=== PATIENT | female | born 1940 | race Caucasian/White ===

== ENCOUNTER → 2018-01-15 07:22 | Outpatient (CLI) | payer MEDICARE, SELFPAY ==
[2018-01-15 10:36] LABS: Absolute Lymphocyte Count 2.32 X10^3/ul (0.83-4.51); Absolute Neutrophil Count 3.1 X10^3/uL (2.0-7.7); Basophil# 0.04 X10^3/uL; Basophil% 0.6 % (0-1); Eosinophil# 0.27 X10^3/uL; Eosinophils% 4.1 % (0-5); Hematocrit 39.9 % (37-47); Hemoglobin 12.9 g/dl (12.0-15.0); Lymphocyte # 2.32 X10^3/ul (4.0); Lymphocyte % 35.2 % (19-41); Mean Corp Hgb Conc 32.3 g/gl (32-36); Mean Corpuscular Volume 89.7 fL (81-99); Mean Platelet Vol. 10.7 fl (6.2-12.0); Monocyte% 13.6 % (0-10); Neutrophil # 3.06 X10^3/uL (2.7-7.7); Neutrophil % 46.3 % (47-70); Platelet Count 234 K/mm3 (150-450); RBC Distribution Width CV 13.5 % (11.6-14.6); Red Blood Count 4.45 M/mm3 (4.2-5.4); White Blood Count 6.6 K/mm3 (4.4-11.0)
[2018-01-15 10:42] LABS: Hemoglobin A1c 6.4 % (4.2-6.3)
[2018-01-15 10:52] LABS: POSITIVE COUNT NO; POSITIVE DIFFERENTIAL NO; POSITIVE MORPHOLOGY NO
[2018-01-15 11:29] LABS: ALB/GLOB Ratio 0.9 RATIO (0.9-2.4); AST(SGOT) 15 U/L (15-37); Alanine Aminotransfer ALT/SGPT 21 U/L (13-56); Albumin, Serum 3.3 g/dL (3.2-5.0); Alkaline Phosphatase 96 U/L (45-117); Anion Gap 10 (5-15); BUN 12 mg/dL (7-18); BUN/Creat Ratio 16.6 RATIO (10-20); Calcium,Total 8.2 mg/dL (8.5-10.1); Chloride 108 mmol/L (98-107); Cholesterol 198 mg/dL (200); Creatinine, Serum 0.72 mg/dL (0.55-1.02); EST Glomerular Filtration Rate 83 mL/min (>60); Est Glom Filt Rate - Afr Amer 100 mL/min (>60); Globulin 3.6 g/dL (2.2-4.2); Glucose 87 mg/dL (74-106); High Density Lipoprotein 45 mg/dL; Potassium 3.7 mmol/L (3.5-5.1); Protein, Total 6.9 g/dL (6.4-8.2); Sodium Level 142 mmol/L (136-145); Thyroid Stim Hormone (TSH) 1.71 uIU/mL (0.358-3.74); Triglycerides 176 mg/dL; Very Low Density Lipoprotein 35 mg/dL (5-40)
== END ==
PROVIDERS: Family Provider Family Medicine; PCP Family Medicine; Visit Provider Family Medicine
DX: E11.9 Type 2 diabetes mellitus without complications (principal); I10 Essential (primary) hypertension; E03.9 Hypothyroidism, unspecified; E78.5 Hyperlipidemia, unspecified
CPT/HCPCS: 36415; 80053; 80061; 83036; 84443; 85025

== ENCOUNTER → 2018-05-17 09:56 | Outpatient (CLI) | payer MEDICARE, SELFPAY ==
[2018-05-17 12:44] LABS: ALB/GLOB Ratio 0.9 RATIO (0.9-2.4); AST(SGOT) 20 U/L (15-37); Alanine Aminotransfer ALT/SGPT 24 U/L (13-56); Albumin, Serum 3.5 g/dL (3.2-5.0); Alkaline Phosphatase 97 U/L (45-117); Anion Gap 7 (5-15); BUN 11 mg/dL (7-18); BUN/Creat Ratio 12.2 RATIO (10-20); Calcium,Total 8.5 mg/dL (8.5-10.1); Chloride 106 mmol/L (98-107); EST Glomerular Filtration Rate 64 mL/min (>60); Est Glom Filt Rate - Afr Amer 78 mL/min (>60); Globulin 3.7 g/dL (2.2-4.2); Glucose 135 mg/dL (74-106); Potassium 3.9 mmol/L (3.5-5.1); Protein, Total 7.2 g/dL (6.4-8.2); Sodium Level 143 mmol/L (136-145)
[2018-05-17 12:52] LABS: Vitamin B12 775 pg/mL (211-911)
== END ==
PROVIDERS: Family Provider Family Medicine; PCP Family Medicine; Visit Provider Family Medicine
DX: E53.8 Deficiency of other specified B group vitamins (principal); Z51.81 Encounter for therapeutic drug level monitoring
CPT/HCPCS: 36415; 80053; 82607

== ENCOUNTER → 2019-01-06 07:56 | Outpatient (CLI) | payer MEDICARE, SELFPAY ==
[2019-01-06 10:08] LABS: Absolute Neutrophil Count 2.5 X10^3/uL (2.0-7.7); Basophil# 0.08 X10^3/uL; Basophil% 1.3 % (0-1); Eosinophil# 0.26 X10^3/uL; Eosinophils% 4.3 % (0-5); Hematocrit 39.9 % (37-47); Hemoglobin 12.7 g/dl (12.0-15.0); Lymphocyte % 38.4 % (19-41); Mean Corp Hgb Conc 31.8 g/gl (32-36); Mean Corpuscular Hgb 28.5 pg (27.0-32.0); Mean Corpuscular Volume 89.7 fL (81-99); Mean Platelet Vol. 10.5 fl (6.2-12.0); Monocyte# 0.84 X10^3/uL; Neutrophil # 2.51 X10^3/uL (2.7-7.7); Platelet Count 218 K/mm3 (150-450); RBC Distribution Width CV 13.1 % (11.6-14.6); RBC Distribution Width SD 43.1 fl (35.1-43.9); Red Blood Count 4.45 M/mm3 (4.2-5.4)
[2019-01-06 10:10] LABS: POSITIVE COUNT NO; POSITIVE DIFFERENTIAL NO; POSITIVE MORPHOLOGY NO
[2019-01-06 10:53] LABS: Microalbumin,Random Urine 6.4 mg/L (NO RANGE EST.); Microalbumin:Creatinine Ratio 8.4 mg/g CRE (<30 mg/g CRE)
[2019-01-06 10:54] LABS: Hemoglobin A1c 6.4 % (4.2-6.3)
[2019-01-06 11:02] LABS: ALB/GLOB Ratio 0.9 RATIO (0.9-2.4); AST(SGOT) 17 U/L (15-37); Alanine Aminotransfer ALT/SGPT 22 U/L (13-56); Albumin, Serum 3.3 g/dL (3.2-5.0); Alkaline Phosphatase 108 U/L (45-117); Anion Gap 10 (5-15); BUN 16 mg/dL (7-18); BUN/Creat Ratio 17.4 RATIO (10-20); Calcium,Total 8.3 mg/dL (8.5-10.1); Chloride 108 mmol/L (98-107); Cholesterol 205 mg/dL (200); Creatinine, Serum 0.92 mg/dL (0.55-1.02); EST Glomerular Filtration Rate 63 mL/min (>60); Est Glom Filt Rate - Afr Amer 76 mL/min (>60); Globulin 3.5 g/dL (2.2-4.2); Glucose 99 mg/dL (74-106); High Density Lipoprotein 46 mg/dL; Potassium 4.2 mmol/L (3.5-5.1); Protein, Total 6.8 g/dL (6.4-8.2); Sodium Level 142 mmol/L (136-145); T4 Free Direct 1.26 ng/dL (0.76-1.46); Thyroid Stim Hormone (TSH) 1.15 uIU/mL (0.358-3.74); Triglycerides 113 mg/dL; Very Low Density Lipoprotein 23 mg/dL (5-40)
[2019-01-08 15:04] LABS: Vitamin B12 500 pg/mL (211-911)
== END ==
PROVIDERS: Family Provider Family Medicine; PCP Family Medicine; Referring Provider Family Medicine; Visit Provider Family Medicine
DX: E11.9 Type 2 diabetes mellitus without complications (principal); I10 Essential (primary) hypertension; E03.9 Hypothyroidism, unspecified; R53.83 Other fatigue; D64.9 Anemia, unspecified
CPT/HCPCS: 36415; 80053; 80061; 82043; 82570; 82607; 83036; 84439; 84443; 85025

== ENCOUNTER → 2019-07-28 07:04 | Outpatient (CLI) | payer MEDICARE, SELFPAY ==
[2019-07-28 10:23] LABS: Cholesterol 206 mg/dL (200); High Density Lipoprotein 51 mg/dL; Triglycerides 105 mg/dL; Very Low Density Lipoprotein 21 mg/dL (5-40)
== END ==
PROVIDERS: Family Provider Family Medicine; PCP Family Medicine; Referring Provider Family Medicine; Visit Provider Family Medicine
DX: E78.5 Hyperlipidemia, unspecified (principal)
CPT/HCPCS: 36415; 80061

== ENCOUNTER → 2019-12-23 09:07 | Outpatient (CLI) | payer MEDICARE, SELFPAY ==
[2019-12-23 10:00] LABS: Absolute Lymphocyte Count 2.22 X10^3/uL (0.83-4.51); Absolute Neutrophil Count 3.7 X10^3/uL (2.0-7.7); Basophil# 0.07 X10^3/uL; Eosinophil# 0.18 X10^3/uL; Eosinophils% 2.6 % (0-5); Hematocrit 39.5 % (37-47); Hemoglobin 12.9 g/dL (12.0-15.0); Lymphocyte # 2.22 X10^3/ul (4.0); Lymphocyte % 32.2 % (19-41); Mean Corp Hgb Conc 32.7 g/dL (32-36); Mean Corpuscular Volume 88.8 fL (81-99); Mean Platelet Vol. 10.2 fl (6.2-12.0); Monocyte# 0.75 X10^3/uL; Monocyte% 10.9 % (0-10); NRBC Flagged by Analyzer 0 % (0-5); Neutrophil # 3.67 X10^3/uL (2.7-7.7); Neutrophil % 53.2 % (47-70); Platelet Count 226 K/mm3 (150-450); RBC Distribution Width SD 42.2 fl (35.1-43.9); Red Blood Count 4.45 M/mm3 (4.2-5.4); White Blood Count 6.9 K/mm3 (4.4-11.0)
[2019-12-23 10:19] LABS: Hemoglobin A1c 6.9 % (4.2-6.3)
[2019-12-23 10:21] LABS: Microalbumin,Random Urine 24.1 mg/L (NO RANGE EST.); Microalbumin:Creatinine Ratio 14.9 mg/g CRE (<30 mg/g CRE)
[2019-12-23 10:26] LABS: ALB/GLOB Ratio 0.9 RATIO (0.9-2.4); AST(SGOT) 14 U/L (15-37); Alanine Aminotransfer ALT/SGPT 20 U/L (13-56); Albumin, Serum 3.3 g/dL (3.2-5.0); Alkaline Phosphatase 100 U/L (45-117); Anion Gap 6 (5-15); BUN 14 mg/dL (7-18); BUN/Creat Ratio 15.5 RATIO (10-20); Calcium,Total 8.8 mg/dL (8.5-10.1); Chloride 109 mmol/L (98-107); Cholesterol 208 mg/dL (200); EST Glomerular Filtration Rate 64 mL/min (>60); Est Glom Filt Rate - Afr Amer 77 mL/min (>60); Free T3 2.5 pg/mL (2.18-3.98); Globulin 3.7 g/dL (2.2-4.2); Glucose 138 mg/dL (74-106); High Density Lipoprotein 46 mg/dL; Potassium 4.2 mmol/L (3.5-5.1); Sodium Level 140 mmol/L (136-145); Thyroid Stim Hormone (TSH) 1.39 uIU/mL (0.358-3.74); Triglycerides 144 mg/dL; Very Low Density Lipoprotein 29 mg/dL (5-40)
[2019-12-23 10:39] LABS: Vitamin B12 919 pg/mL (211-911)
== END ==
PROVIDERS: PCP Family Medicine; Referring Provider Family Medicine; Visit Provider Family Medicine
DX: E11.9 Type 2 diabetes mellitus without complications (principal); E03.9 Hypothyroidism, unspecified; E53.8 Deficiency of other specified B group vitamins; E78.5 Hyperlipidemia, unspecified; Z51.81 Encounter for therapeutic drug level monitoring
CPT/HCPCS: 36415; 80053; 80061; 82043; 82570; 82607; 83036; 84439; 84443; 84481; 85025

== ENCOUNTER → 2020-01-15 06:43 | Outpatient (CLI) | payer MEDICARE, SELFPAY ==
--- NOTE | 2020-01-15 08:19 | CDU_ITS ---
Reason For Study: stroke Rt. Velocities/BP Lt. Velocities/BP Prox CCA 76.8/15.4 cm/sec. Prox CCA 108.3/20.6 cm/sec. Mid CCA 124.7/20.6 cm/sec. Mid CCA 122.9/26.1 cm/sec. Dist CCA 102.8/18.8 cm/sec. Dist CCA 108.4/20.0 cm/sec. Prox ICA 99.8/15.1 cm/sec. Prox ICA 119.5/21.2 cm/sec. Mid ICA 83.9/20.0 cm/sec. Mid ICA 91.2/21.2 cm/sec. Dist ICA 72.8/20.0 cm/sec. Dist ICA 76.5/22.5 cm/sec. Rt. ICA/CCA = .8. Lt. ICA/CCA = .97. Prox ECA 106.5/15.2 cm/sec. Prox ECA 106.0/16.3 cm/sec. Rt. Vert. 49.5/13.9 cm/sec. Lt. Vert. 38.8/12.4 cm/sec. Right Extracranial There is homogeneous, smooth atherosclerotic plaque noted in the right common carotid artery. There is intimal thickening but no significant atherosclerotic plaque noted in the right internal carotid artery. There is intimal thickening but no significant atherosclerotic plaque noted in the right external carotid artery. Antegrade flow is noted in the right vertebral artery. Left Extracranial There is heterogeneous, irregular atherosclerotic plaque noted in the left common carotid artery. There is intimal thickening but no significant atherosclerotic plaque noted in the left internal carotid artery. There is intimal thickening but no significant atherosclerotic plaque noted in the left external carotid artery. Antegrade flow is noted in the left vertebral artery. Procedure Carotid Duplex 23027. The exam was diagnostic. Exam performed in department. Interpretation Summary No significant atherosclerotic plaque or stenosis noted in the internal carotid arteries bilaterally. Flow within the vertebral arteries is antegrade bilaterally. Ordering Physician: Ivett Trujillo Performed By: Jordon Roque RVT
--- NOTE | 2020-01-15 14:58 | STRESSREP_ITS ---
Stress Test Report Date: 01/15/2020 Procedure: Pharmacologic stress nuclear imaging study Indications: Fatigue, stroke Consent: Per the patient Procedure: The patient underwent pharmacologic (Regadenoson) evaluation with a peak heart rate of 99 beats per minute (71 %predicted maximal heart rate) and a peak blood pressure of 130/60 mmHg. The baseline ECG demonstrated normal sinus rhythm. EKG during lexiscan infusion revealed no significant ischemic changes. EKG post infusion revealed no significant ischemic changes [There were no cardiac dysrhythmias pretest, during pharmacologic infusion, or recovery]. [There was no complaint of chest discomfort during pharmacologic infusion or recovery]. The examination was discontinued secondary to completion of protocol. Impression: 1. Lexiscan stress test test is negative for Lexiscan infusion induced EKG changes of ischemia. 2. Lexiscan stress test test is negative for Lexiscan infusion induced chest pain. 3. Results of the nuclear portion of the test is as below Myocardial perfusion imaging study: Technique: The patient was injected with 11.3 millicuries of technetium 99m Cardiolite and subsequently rest SPECT Cardiolite nuclear imaging was obtained in the horizontal long, vertical long, and short axis views. The patient underwent pharmacologic (Regadenoson) evaluation. Please see above for details. The patient was injected with 36 millicuries of technetium 99m Cardiolite and subsequently stress SPECT Cardiolite nuclear imaging was obtained in the horizontal long, vertical long, and short axis views. A gated Cardiolite study at peak stress was obtained. Interpretation: Rest and stress SPECT Cardiolite nuclear imaging status post realignment, normalization, and attenuation correction demonstrate normal myocardial radioisotope uptake. Gated images reveal no significant regional wall motion abnormalities. The reported LVEF is greater than 70 %. Impression: 1. There is no evidence of significant ischemia or infarction. 2. Estimated ejection fraction is greater than 70%. This note was generated with [employer] software. It may contain incorrect words, spelling, and punctuation that were not noted in checking the note before signing.
== END ==
PROVIDERS: PCP Family Medicine; Referring Provider Family Medicine; Visit Provider Family Medicine
DX: R06.09 Other forms of dyspnea (principal); R53.83 Other fatigue; E11.9 Type 2 diabetes mellitus without complications; Z86.73 Personal history of transient ischemic attack (TIA), and cerebral infarction without residual deficits
CPT/HCPCS: 78452; 93017; 93880; A9500; A4216; J2785

== ENCOUNTER → 2020-07-01 11:29 | Outpatient (CLI) | payer MEDICARE, SELFPAY ==
[2020-07-01 16:12] LABS: Vitamin B12 399 pg/mL (211-911); Vitamin D,25 Hydroxy 40.3 ng/mL
== END ==
PROVIDERS: PCP Family Medicine; Visit Provider Family Medicine
DX: E53.8 Deficiency of other specified B group vitamins (principal); E55.9 Vitamin D deficiency, unspecified
CPT/HCPCS: 36415; 82306; 82607

== ENCOUNTER → 2021-01-27 15:19 | Outpatient (CLI) | payer MEDICARE, SELFPAY ==
--- NOTE | 2021-01-27 15:22 | BI_ITS ---
MAMMOGRAPHY - BILATERAL SCREENING REASON FOR EXAM: Female, 80 years old. Routine annual screening examination. PERTINENT HISTORY: Non-contributory. TECHNIQUE: Digital bilateral breast amrit (3D mammographic acquisition) in the CC and MLO projections. 2-D mediolateral oblique (MLO) and craniocaudad (CC) views of both breasts were obtained. CAD: Full Field Digital Mammography with Computer Added Detection was performed. COMPARISON: Comparison is made with prior study dated 08/21/2017 and 01/12/2016. FINDINGS: Breast Composition: The breasts are almost entirely fatty. There are no dominant masses or suspicious calcifications. No other significant abnormalities are identified. There has been no significant change since the prior study. BI/SCRN MAMM (CAD)W/AMRIT BILAT IMPRESSION: Stable bilateral screening mammogram. Yearly follow-up mammogram recommended. (A) ASSESSMENT CATEGORY: BIRADS Category 1: Negative. A letter regarding these results will be sent to the patient by the facility within 30 days. Approximately 10% of breast cancers are not detected by mammography. A normal mammogram should not delay biopsy of a clinically suspicious abnormality. [id number] Electronically Signed: Tim Rodriguez MD at 8:33 EDT , Service support ,
--- NOTE | 2021-01-27 15:28 | BD_ITS ---
STUDY: DUAL ENERGY X-RAY ABSORPTIOMETRY / DXA REASON FOR EXAM: Female, 80 years old. 733.00OsteoporosisBONE DENSITY REASON FOR EXAM TECHNIQUE: Bone Mineral Density (BMD) measurements of lumbar spine and bilateral hips were obtained. COMPARISON: Comparison is made with prior study dated 12/31/2012. FINDINGS: Lumbar Spine (L1-L4): g/cm2 (1.122) / T-score (-0.5) / Z-score (1.4) Findings are suggestive of normal bone density with a low fracture risk. Left Femur Total: g/cm2 (0.930) / T-score (-0.6) / Z-score (1.5) Left Femoral Neck: g/cm2 (0.866) / T-score (-1.2) / Z-score (1.0) Right Femur Total: g/cm2 (0.854) / T-score (-1.2) / Z-score (0.9) Right Femoral Neck: g/cm2 (0.806) / T-score (-1.7) / Z-score (0.6) The T-Scores on the most recent prior examination were: Lumbar Spine (L1-L4): There has been improvement of bone density since the previous examination. Left Femur Total: which represents a worsening of 6.1%. Right Femur Total: which represents a worsening of 7.8%. BD/Dexa Bone Density Study IMPRESSION: The patient is considered osteopenic as outlined below according to World [place] [employer] Organization (WHO) criteria with a moderate fracture risk. There has been worsening of bone density since the previous examination. Reference Information: The T-score is the number of standard deviations above or below the standard which is normal for young adults at their peak bone mineral density. The World Health Organization (WHO) interprets the T-scores as follows: Above -1 Normal bone density Between -1 and -2.5 Osteopenia Equal to / or below -2.5 Osteoporosis As a practical clinical guideline, osteopenia may be graded as follows: Mild -1 through -1.5 Moderate -1.6 through -2.0 Severe -2.1 through -2.4 The Z-score is the number of standard deviations above or below age-matched controls. A Z-score of less than -1.5 would be considered abnormal. References: 1. NIH Osteoporosis and Related Bone Diseases www osteo.org 2. International Society for Clinical Densitometry www iscd.org 3. National Osteoporosis Foundation www nof.org Electronically Signed: Tim Rodriguez MD at 13:12 EDT , Service support ,
== END ==
LOC: OPBD 15:20
PROVIDERS: PCP Family Medicine; Referring Provider Family Medicine; Visit Provider Family Medicine
DX: Z12.31 Encounter for screening mammogram for malignant neoplasm of breast (principal); M81.0 Age-related osteoporosis without current pathological fracture
CPT/HCPCS: 77063; 77067; 77080

== ENCOUNTER → 2021-04-11 07:51 | Outpatient (CLI) | payer MEDICARE, SELFPAY ==
[2021-04-11 10:16] LABS: Absolute Lymphocyte Count 2.57 X10^3/uL (0.83-4.51); Absolute Neutrophil Count 2.8 X10^3/uL (2.0-7.7); Basophil# 0.09 X10^3/uL; Basophil% 1.4 % (0-1); Eosinophil# 0.28 X10^3/uL; Eosinophils% 4.3 % (0-5); Hematocrit 37.7 % (37-47); Hemoglobin 12.2 g/dL (12.0-15.0); Lymphocyte # 2.57 X10^3/ul (0.83-4.51); Lymphocyte % 39.2 % (19-41); Mean Corp Hgb Conc 32.4 g/dL (32-36); Mean Corpuscular Hgb 28.7 pg (27.0-32.0); Mean Corpuscular Volume 88.7 fL (81-99); Mean Platelet Vol. 10.8 fl (6.2-12.0); Monocyte% 12.2 % (0-10); NRBC Flagged by Analyzer 0 % (0-5); Neutrophil # 2.81 X10^3/uL (2.7-7.7); Neutrophil % 42.7 % (47-70); Platelet Count 221 K/mm3 (150-450); RBC Distribution Width CV 13.2 % (11.6-14.6); RBC Distribution Width SD 43.2 fl (35.1-43.9); Red Blood Count 4.25 M/mm3 (4.2-5.4); White Blood Count 6.6 K/mm3 (4.4-11.0)
[2021-04-11 10:40] LABS: ALB/GLOB Ratio 0.9 RATIO (0.9-2.4); AST(SGOT) 14 U/L (15-37); Alanine Aminotransfer ALT/SGPT 17 U/L (13-56); Albumin, Serum 3.2 g/dL (3.2-5.0); Alkaline Phosphatase 112 U/L (45-117); Anion Gap 7 (5-15); BUN 18 mg/dL (7-18); BUN/Creat Ratio 20.3 RATIO (10-20); Calcium,Total 8.6 mg/dL (8.5-10.1); Chloride 107 mmol/L (98-107); Cholesterol 188 mg/dL (200); Creatinine, Serum 0.88 mg/dL (0.55-1.02); EST Glomerular Filtration Rate 65 mL/min (>60); Est Glom Filt Rate - Afr Amer 79 mL/min (>60); Free T3 2.4 pg/mL (2.18-3.98); Globulin 3.5 g/dL (2.2-4.2); Glucose 150 mg/dL (74-106); High Density Lipoprotein 41 mg/dL; Potassium 4.1 mmol/L (3.5-5.1); Protein, Total 6.7 g/dL (6.4-8.2); Sodium Level 142 mmol/L (136-145); T4 Free Direct 1.26 ng/dL (0.76-1.46); Thyroid Stim Hormone (TSH) 2.08 uIU/mL (0.358-3.74); Triglycerides 165 mg/dL; Very Low Density Lipoprotein 33 mg/dL (5-40)
[2021-04-11 10:42] LABS: Microalbumin,Random Urine 9.7 mg/L (NO RANGE EST.); Microalbumin:Creatinine Ratio 11.5 mg/g CRE (<30 mg/g CRE)
== END ==
PROVIDERS: PCP Family Medicine; Referring Provider Family Medicine; Visit Provider Family Medicine
DX: E11.9 Type 2 diabetes mellitus without complications (principal); E03.9 Hypothyroidism, unspecified; E78.5 Hyperlipidemia, unspecified; I10 Essential (primary) hypertension; Z51.81 Encounter for therapeutic drug level monitoring
CPT/HCPCS: 36415; 80053; 80061; 82043; 82570; 84439; 84443; 84481; 85025

== ENCOUNTER → 2021-08-24 07:46 | Outpatient (CLI) | payer MEDICARE, SELFPAY ==
--- NOTE | 2021-08-24 07:49 | US_ITS ---
EXAM: US ABDOMEN COMPLETE : 1940 CLINICAL INDICATION: ABD PAIN ACID REFLUX ABD DISTENSION TECHNIQUE: Real-time ultrasound of the abdomen with image documentation. This report was created using [employer] report generation technology. COMPARISON: None. FINDINGS: LIVER: The liver measures 14.3 cm. There is normal echotexture. No intrahepatic biliary ductal dilation. GALLBLADDER: There is shadowing seen within the gallbladder fossa compatible with a gallbladder filled with stones. The gallbladder wall is thickened measuring 6 mm. Echogenic material in the gallbladder compatible with sludge and gallstones. There is thickening of the gallbladder wall which is nonspecific finding but can be seen in cholecystitis.. There is no evidence of pericholecystic fluid. The patient had a negative sonographic Conteh sign. COMMON BILE DUCT: The common bile duct measures 4 mm. The proximal common bile duct is within normal limits for the patient's age. PANCREAS: Unremarkable as visualized. No focal abnormality is demonstrated in the pancreas. No pancreatic ductal dilatation. KIDNEYS: The right kidney measures 10.3 x 3.8 4.1 cm. There is a 2.8 x 1.9 cm cyst on the right kidney. No follow-up imaging is necessary. The left kidney measures 9.7 x 4.8 x 4.6 cm. There is peripelvic cysts in the left kidney. There is no hydronephrosis. No shadowing calculus. SPLEEN: The spleen measures 7.1 cm in length. AORTA: Proximal aorta measures 2.0 cm, the mid aorta measures 1.7 cm in the distal aorta measures 1.6 cm. INFERIOR VENA CAVA: There is flow in the inferior vena cava. OTHER VASCULATURE: Iliac arteries measure 9 mm on the right and 8 mm on the left. FREE FLUID: There is no free fluid. US/Abdomen Complete IMPRESSION: No acute findings in the abdomen. at 0308 Reported and signed by: Jamaal Motta MD Electronically Signed: Jamaal Motta MD at 3:07 EDT Tel , Service support ,
== END ==
PROVIDERS: PCP Family Medicine; Referring Provider Family Medicine; Visit Provider Family Medicine
DX: R10.9 Unspecified abdominal pain (principal); R14.0 Abdominal distension (gaseous)
CPT/HCPCS: 76700

== ENCOUNTER 2021-09-12 18:23 | Observation (INO) | payer MEDICARE, SELFPAY ==
--- NOTE | 2021-09-09 08:56 | EKG12_ITS ---
Test Reason : PRE OP Blood Pressure : / mmHG Vent. Rate : 062 BPM Atrial Rate : 062 BPM P-R Int : 174 ms QRS Dur : 074 ms QT Int : 388 ms P-R-T Axes : 074 -49 042 degrees QTc Int : 393 ms Normal sinus rhythm Low voltage QRS Left anterior fascicular block Poor R wave progression Abnormal ECG Confirmed by SAURABH LUCERO, DYLAN ([id number]), editor managing newspaper GERARDO HOSKINS ([id number]) on 09/12/2021 11:14:23 AM Referred By: Bear Almodovar Confirmed By:DYLAN WILEY MD
[2021-09-09 09:29] LABS: Hematocrit 37.5 % (37-47); Hemoglobin 12.2 g/dL (12.0-15.0); Mean Corp Hgb Conc 32.5 g/dL (32-36); Mean Corpuscular Hgb 28.6 pg (27.0-32.0); Mean Corpuscular Volume 87.8 fL (81-99); Platelet Count 210 K/mm3 (150-450); RBC Distribution Width CV 13.6 % (11.6-14.6); RBC Distribution Width SD 43.8 fl (35.1-43.9); Red Blood Count 4.27 M/mm3 (4.2-5.4); White Blood Count 6.6 K/mm3 (4.4-11.0)
[2021-09-09 10:21] LABS: Anion Gap 6 (5-15); BUN 16 mg/dL (7-18); Calcium,Total 9.1 mg/dL (8.5-10.1); Chloride 107 mmol/L (98-107); EST Glomerular Filtration Rate 56 mL/min (>60); Est Glom Filt Rate - Afr Amer 68 mL/min (>60); Glucose 227 mg/dL (74-106); Potassium 4.2 mmol/L (3.5-5.1); Sodium Level 139 mmol/L (136-145); Thyroid Stim Hormone (TSH) 1.62 uIU/mL (0.358-3.74)
[2021-09-09 14:38] LABS: Hemoglobin A1c 7.2 % (3.8-5.6)
[2021-09-12] VITALS (23 sets, daily range): BP systolic 111–159; BP diastolic 45–95; PULSE 54–77; RESP 14–18; TEMP 36.2–36.9; O2SAT 86–99; BMI 33.5; BMI 33.3
--- NOTE | 2021-09-12 | GALL_PTH ---
PATIENT: PEDRITO MELCHOR LOC: MS3 U#:[id number] AGE/SX: 80/F ROOM: GA319 RE09/12/[address]: Dr. Bear Almodovar MD : 1940 BED: 1 DIS: 09/13/2021 SPEC #: [id number] RECD: 09/12/21 15:37 STATUS: ELLIS FLEMING #: [id number] TANA: 09/12/21 00:[address]: Bear Almodovar DEPT: SURGICAL PATHOLOGY RECD BY: Martir George ENTERED: 09/13/21 08:20 SP TYPE: PORFIRIO NGUYEN DR: Dr. Eunice Dinero DO Tissues: Gallbladder, NOS Procedures: Surgery Specimen Level IV HEADER OPERATION: Laparoscopic cholecystectomy with IOC PRE-OP DIAGNOSIS: Gallstones TISSUE SUBMITTED: Gallbladder MICROSCOPIC DIAGNOSIS Gallbladder, cholecystectomy: Chronic cholecystitis and cholelithiasis. SJ:aditya 09/15/2021 MICROSCOPIC DESCRIPTION Slides are reviewed. GROSS DESCRIPTION Received is one container labeled with the patient's name and designated gallbladder. The specimen consists of a gallbladder measuring 9 cm in length and up to 4 cm in diameter. The external surface is pink-, smooth and glistening for the most part. Focally it is granular, hemorrhagic and contains cautery artifact. The gallbladder contains green-yellow mucoid bile and multiple brown-orange multifaceted stones and stone fragments measuring in aggregate 6.5 x 6 x 1.5 cm and 0.2 to 2 cm in greatest dimension. The mucosa is bile-stained and without any mass lesions. The gallbladder wall measures up to 0.3 cm in thickness. Track Manager sections from the gallbladder and the cystic duct are submitted in one cassette. / ANTOINETTE:aditya 09/13/21 More sections are submitted in three more cassettes, 2-4. / ANTOINETTE:aditya 09/14/21 TC:3 CPT: 09380
[2021-09-12 12:05] LABS: Bedside Glucose 163 mg/dL (70-110)
[2021-09-12] MEDS: Lactated Ringers 1,000 ML 100 ML IV ×3 (12:24→20:17)
--- NOTE | 2021-09-12 13:00 | RAD_ITS ---
STUDY: INTRAOPERATIVE CHOLANGIOGRAM. REASON FOR EXAM: Female, 80 years old. LAPAROSCOPIC, CHOLECYSTECTOMY WITH IOC FLUOROSCOPY TIME (if supplied): ( 13.8 seconds. ) minutes/seconds. A cine loop of 76 images was submitted. TECHNIQUE: An intraoperative Cholangiogram was performed by the surgeon. Imaging was submitted. COMPARISON: None. FINDINGS: The intrahepatic biliary ducts are unremarkable. The common bile duct is unremarkable. No intraluminal filling defect is seen. There is free flow of contrast into the duodenum. RAD/Cholangiogram/ O R,Initial IMPRESSION: Unremarkable intraoperative cholangiogram. Electronically Signed: Tim Rodriguez MD at 14:31 EST , Service support ,
--- NOTE | 2021-09-12 13:10 | PCM.HP.BLA ---
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 Is patient in pain?: No Allergies Penicillins Allergy (Verified 08/18/15 22:42) Rash Ntqqkbt-Mdb-Pwk Reductase Inhibitor Adverse Reaction (Verified 08/18/15 22:42) Pain in joints Medications glimepiride 4 mg PO DAILY 06/09/14 [History Confirmed 08/29/21] levothyroxine 75 mcg PO DAILY 06/09/14 [History Confirmed 08/29/21] sitagliptin [Januvia] 100 mg PO DAILY 08/18/15 [History Confirmed 08/29/21] vitamins A,C,X-pkej-hxmsou [PreserVision AREDS] 1 ea PO BID 08/18/15 [History Confirmed 08/29/21] amlodipine 2.5 mg PO DAILY #30 tablet 09/02/15 [Rx Confirmed 08/29/21] clopidogrel 75 mg PO DAILY #30 tablet 09/02/15 [Rx Confirmed 08/29/21] ergocalciferol (vitamin D2) [Vitamin D2] 50,000 unit PO QWEEK #0 cap 09/02/15 [Rx Confirmed 08/29/21] sennosides-docusate sodium [Stool Softener-Stimulant Laxat] 2 tab PO BID #0 tablet 09/02/15 [Rx Confirmed 08/29/21] losartan 50 mg tablet 50 mg PO DAILY tab 08/29/21 [History Confirmed 08/29/21] omega-3 fatty acids 1,000 mg capsule 1,000 mg PO DAILY 08/29/21 [History Confirmed 08/29/21] oxybutynin chloride 10 mg tablet,extended release 24 hr 10 mg PO DAILY tab 08/29/21 [History Confirmed 08/29/21] oxybutynin chloride 15 mg tablet,extended release 24 hr 15 mg PO tab 08/29/21 [History Confirmed 08/29/21] vit C 250 mg-vit E 90 mg-zinc 40 mg-copper 1 tv-[id number]-[id number] capsule 1 tab PO BID 08/29/21 [History Confirmed 08/29/21] Is last menstrual period known: No Post menopausal: Yes Patient : No PFSH Medical History (Updated 08/29/21 @ 14:[address] Bear Almodovar MD) Gallstones GERD (gastroesophageal reflux disease) Surgical History (Updated 08/29/21 @ 13:40 by Nakia Patton) History of tonsillectomy Family History (Updated 08/29/21 @ 13:40 by Nakia Patton) Mother Diabetes Brother CAD (coronary artery disease) Social History Smoking Status: Never smoker HPI HPI HPI: PEDRITO EMLCHOR, is a 80 F who presents to the office today for gallstones. Patient is not having any abdominal pain. She reports no nausea or vomiting. She had acid reflux and has been sent for ultrasound of the abdomen which revealed these gallstones. She denies any fevers or chills. ROS General General: Yes weight change and fatigue HEENT HEENT: No difficulty swallowing Endo Endocrine: Yes thyroid disease Musc Musculoskeletal: Yes arthritis; No back problems Cardio Cardiovascular: Yes high blood pressure; No pacemaker, heart disease, atrial fibrillation, heart attack, heart stent, palpitations or chest pain Psych Psychiatric: No depression or anxiety Resp Respiratory: No shortness of breath, Yes cough, No COPD, No asthma and No emphysema Gastro Gastrointestinal: No abdominal pain, No nausea or vomiting, No diarrhea, No constipation, No blood in stool, Yes acid reflux, No hemorrhoids, No ulcers, Yes gallbladder problem and No black,tarry stools Naif Hematologic: Yes blood thinners Exam Const General: cooperative Orientation: alert and oriented x3 HENME Head: normal to inspection Neck Neck: normal visual inspection and full ROM Chest Chest palpation & inspection: normal inspection of the chest Resp Effort & Inspection: normal respiratory effort Auscultation: clear to auscultation bilaterally Cardio Rate: regular rate Rhythm: regular rhythm GI Inspection: non-distended Palpation: soft and nontender Skin General: no rashes or lesions noted Neuro General: patient alert and patient oriented x3 Extrem General: full ROM Psych Appearance: grossly normal Mental Status: mental status grossly normal Assessment and Plan Assessment and Plan (1) Gallstones: Status: Acute Plan - Dr. Bear Almodovar MD: The patient had an ultrasound which shows a very full gallbladder full of stones with a thickness of 6 mm. I believe the patient likely has chronic cholecystitis but does not feel due to her diabetes. I recommended laparoscopic cholecystectomy for her. Before surgery I would like her to get clearance from her medical doctor and clearance to stop her Plavix for 5 days prior to surgery. Patient reports she is not stopped her Plavix at all for any reason since her stroke in 2014. I am unsure as the etiology of her stroke and to make sure from her primary doctor that she is clear for surgery from a medical standpoint. I discussed the procedure in detail with the patient. I discussed the risks, benefits, and alternatives of the procedure. I discussed the risks including but not limited to bleeding, infection, injury to surrounding organs such as the liver, bile duct, bowels. I did discuss the possibility of having to convert to an open procedure as well as the possibility that if any injuries occurred this may necessitate further surgery at a tertiary care center. Bear Almodovar MD Pager: [facility] [address] [place] [address] [address] [place] [address] Office: I have re-examined the patient. There are no clinical changes since date of exam.
[2021-09-12] MEDS: Bupivacaine Mpf 0.5% 30 ML VIAL (14:10)
--- NOTE | 2021-09-12 14:23 | OP.PCM_ITS ---
Problems Associated Problem List Diagnoses (1) Gallstones: Report of Operation Date of Procedure: 09/12/21 Pre-Operative Diagnosis: Cholelithiasis Post-Operative Diagnosis: Cholelithiasis with chronic cholecystitis Surgery/Procedure Performed:: Laparoscopic cholecystectomy with cholangiogram Description of Surgical Findings:: Inflamed gallbladder anteriorly with multiple gallstones. Normal IOC Specimen's removed: Gallbladder Description of Procedure: After obtaining informed consent patient was brought back to the operating room. General anesthesia was induced. The abdomen was prepped and draped in usual sterile fashion. A small midline incision was made superior to the umbilicus and deepened to the level of fascia. The fascia was elevated and incised. Next the peritoneum was elevated and incised in the same fashion. Finger sweep was performed and the Crum trocar was placed into the abdomen. The balloon was inflated. The abdomen was inflated to 15 mmHg. Next a camera was introduced into the abdomen and the abdomen was inspected. Next under direct visualization three 5-mm ports were placed one subxiphoid and 2 subcostal. Next the gallbladder was elevated and retracted toward the right shoulder. The peritoneum was stripped from the gallbladder. The infundibulum was located and retracted laterally. Next the triangle of Calot was dissected and the cystic duct and cystic artery were identified. Cholangiograms were performed. The Green clamp was used to clamp across the infundibulum and the catheter needle was inserted into the gallbladder. Under fluoroscopy contrast was instilled into the gallbladder and the common duct, cystic duct as well as proximal hepatic ducts were identified. There was good filling of the duodenum. There were no filling defects noted in the common bile duct. The clamp was removed as well as the needle and the infundibulum was grasped once more. Three hemolock clips were placed across the cystic duct. The cystic duct was then divided leaving 2 clips on the stump. The cystic artery was clipped and divided in the same fashion. The hook cautery was then used to take the gallbladder off of the gallbladder bed. Hemostasis was obtained. Surgicel powder was sprayed over the gallbladder fossa. Gallbladder fossa was irrigated and no active bleeding or bile leakage was noted. Next the camera was introduced in the subxiphoid port. An Endopouch bag was placed through the umbilical port and the gallbladder was placed into it. The gallbladder was then removed through the umbilical incision. The camera was then reinserted through the umbilical port. The gallbladder fossa was inspected once more and noted to be hemostatic with no leaking bile. The abdomen was suctioned dry. The 5 mm ports were removed under direct visualization. The umbilical port was then removed and the air was removed from the abdomen. Next using an 0 Vicryl suture the umbilical fascia was closed in a [id number]-tf-wlhry fashion. The umbilical port site was irrigated local anesthetic was administered to all the incisions. All the incisions were closed with interrupted subcuticular 4-0 Monocryl sutures followed by Steri- Strips and dressings. The patient was awoken and taken to PACU in stable condition. Admit VTE Documentation VTE Mechan Device Prophylaxis: SCD's
--- NOTE | 2021-09-12 14:24 | EX.PCM.DISCH ---
Discharge Instructions Procedure Gallbladder Diet Discharge Diet: Light diet - advance as tolerated Activity Discharge Activity: May Not Drive (for 2-3 days or while taking narcotic pain medications.) and - (Do not drive, work heavy equipment or sign legal documents for 24 hours.) May shower in (days): 1 Lifting Restrictions: 20 lbs for 2 weeks Additional Activity Instructions:: Pain medication may cause nausea. You should typically eat light foods as you take your pain medications. Pain medication may also cause constipation. If this is a problem for you, please discuss with your doctor. Dressing / Incision Call your doctor if your incision/area has: Continuous Slow Oozing, Sudden Increased Bleeding, Increased Pain/ Swelling, Increased Redness and Foul Smelling Discharge Call your doctor if you observe: Fever of 101 or Higher Suture Line Care: Avoid Pulling/Pushing and Avoid Pinching/Bending Remove Dressing in: 2 days Cleanse incision/area with: Soap & Water Additional Dressing/Incision Instructions:: Leave operative bandaids on for 2 days. When you remove dressing, leave Steri-Strips on until your follow-up appointment, or until the Steri-Strips fall off on their own. Follow Up Care Please Follow Up With: Bear Almodovar MD When: Please call to schedule 2 week follow up appointment. [phone] Test Results: Test results from this visit will be discussed in further detail at your follow-up appointment, if applicable. Discharge Plan Admission Attending Provider: Bear Almodovar Primary Care Provider: Eunice Dinero Instructions Additional Instructions / Restrictions: Resume plavix Sunday Discharge Orders/Prescriptions Prescriptions: New oxycodone-acetaminophen [Percocet] 5-325 mg tablet 1 tab PO Q4H PRN (Reason: pain) 5 Days Qty: 20 RF: 0 No Action losartan 50 mg tablet 50 mg PO DAILY RF: 0 oxybutynin chloride 15 mg tablet extended release 24hr 15 mg PO DAILY RF: 0 omega-3 fatty acids [Fish Oil Concentrate] 1,000 mg capsule 1,000 mg PO BID RF: 0 PreserVision AREDS-2 250-90-40-1 mg capsule 1 tab PO BID RF: 0 levothyroxine 50 MCG tablet 75 mcg PO DAILY RF: 0 glimepiride 4 MG tablet 4 mg PO DAILY RF: 0 Januvia 25 MG tablet 100 mg PO DAILY RF: 0 amlodipine 2.5 MG tablet 2.5 mg PO DAILY Qty: 30 RF: 0 clopidogrel 75 MG tablet 75 mg PO DAILY Qty: 30 RF: 0 cholecalciferol (vitamin D3) [Vitamin D3] 25 mcg (1,000 unit) Capsule 25 mcg PO DAILY RF: 0 sennosides-docusate sodium [Stool Softener-Stimulant Laxat] 1 TABLET tablet 2 tab PO PRN PRN (Reason: Constipation) RF: 0 Referrals / Follow Up: Eunice Dinero DO [Primary Care Provider] - Disposition Disposition (needs filled in before D/C Order can be placed): Home, Self Care
[2021-09-12] MEDS: Ipratropium/Albuterol Sulfate 3 ML AMPUL.NEB INHALATION (17:56)
[2021-09-12 18:21] LABS: Bedside Glucose 210 mg/dL (70-110)
[2021-09-13 00:03] VITALS: BP 110/57; PULSE 94; RESP 16; TEMP 36.8; O2SAT 98
--- NOTE | 2021-09-13 01:02 | PCS.PANDOC ---
PANDEMIC DOCUMENTATION INITIATED: Date: 06/20/2021 Time: 190
[2021-09-13 04:03] VITALS: BP 127/64; PULSE 83; RESP 16; TEMP 36.7; O2SAT 98
[2021-09-13] MEDS: Levothyroxine 75 MCG Tablet PO (05:40)
[2021-09-13 05:46] VITALS: O2SAT 92
[2021-09-13 07:46] VITALS: BP 127/59; PULSE 81; RESP 16; TEMP 36.8; O2SAT 91
--- NOTE | 2021-09-13 07:52 | PCM.PN.SRG ---
Subjective Subjective Patient down to 1 L of nasal cannula and feeling comfortable. She is tolerating ice chips and clears Objective Data Objective Data Vital Signs: Vital Signs Temp Pulse Resp BP Pulse Ox 98.1 F 83 16 127/64 H 92 09/13/21 04:03 09/13/21 04:03 09/13/21 04:03 09/13/21 04:03 09/13/21 05:46 Oxygen Flow Rate (L/min) 1 Oxygen Delivery Method Nasal Cannula Weight: 182 lb Body Mass Index (BMI) 33.3 Intake & Output: Intake and Output for Last 24 Hours 09/11/21 09/12/21 09/13/21 23:59 23:59 23:59 Intake Total 1249.33 / 1249.33 600 / 600 Output Total 300 / 300 200 / 200 Balance 949.33 / 949.33 400 / 400 Lab / Micro Data Result Diagrams: 09/09/21 09:16 09/09/21 09:16 Labs: Laboratory Results - last 24 hr 09/12/21 12:00: POC Glucose 163 H 09/12/21 18:15: POC Glucose 210 H Radiography Diagnostic Testing: Radiology Impression Cholangiogram 09/12/21 13:00 IMPRESSION: Unremarkable intraoperative cholangiogram. Electronically Signed: Tim Rodriguez MD at 14:31 EST , Service support , Physical Exam GI soft to palpation Palpation: tender RUQ Assessment & Plan Assessment/Plan (1) Gallstones: PLAN: Patient required admission after laparoscopic cholecystectomy due to nausea vomiting and oxygen requirements. This morning she is down to 1 L of oxygen she is weaning down to room air. She is tolerating some clear liquids and ice chips now advance her diet and see if she tolerates this. If she tolerates diet and is weaned off O2 she may be discharged home. Bear Almodovar MD Pager: [facility] [address] [place] [address], [address] [place] [address] Office:
[2021-09-13 09:08] VITALS: BP 129/51; PULSE 70; RESP 16; TEMP 36.6; O2SAT 93
[2021-09-13] MEDS: Acetaminophen 325 MG Tablet 650 MG PO (09:13)
[2021-09-13] MEDS: amLODIPine 2.5 MG Tablet PO (09:14)
[2021-09-13] MEDS: LINAGLIPTIN 5 MG TABLET PO (09:14)
[2021-09-13] MEDS: Tolterodine Tartrate 4 MG CAP.SA PO (09:14)
[2021-09-13] MEDS: Losartan Potassium 50 MG Tablet PO (09:14)
[2021-09-13] MEDS: Glimepiride 4 MG Tablet PO (09:14)
--- NOTE | 2021-09-13 11:15 | CASEMGMT ---
AMBER GOODMAN Assessment: Face to Face with pt for initial transition planning/care coordination assessment. RN MAXINE introduced self and role at [facility], pt voices understanding and consents to assessment. Pt is A/O x4 and answers all questions appropriately at this time. Pt sitting up in bed in no distress. at bedside. Care providers, pharmacy, and demographics verified/updated. Admitting Dx: dain jimenez PCP:Rosette Specialists:Scooby, surgeon; venecia Mcdonald Preferred Pharmacy: [facility] Retail while inpt Insurance: [employer] Prescription Benefit: yes LW/HPOA: Pt states she does have LW/DPOA. States her is DPOA and she is aware it is not on file at [facility] and may bring to be scanned into the chart. LNOK: Humberto Novoa, ; Annabelle/Anderson Aguirre, dtr and benton Living Arrangements: Pt lives with in a two story house with 2 steps to enter with a rail. Pt states she does not use the second floor. Pt reports being I in ADL's and denies concerns at home. Transportation: Pt transports pt to medical appts. Pt does not drive. DME/HHC/SNF: Pt has a shower chair, cane that she seldom uses, step in shower and grab bars in the bathroom. Pt has had HHC in the past when she had a stroke but she is unaware of which agency. Pt denies SNF stays. Pt states no concerns with going home at time of dc. Pt states no further concerns/needs. CM to follow. Advised pt to ask CM if any further question/concerns/needs arise, voices understanding. Pt Goal: Home Plan: Home
[2021-09-13] MEDS: oxyCODONE 5 MG Tablet PO (14:13)
[2021-09-13 16:18] VITALS: O2SAT 93
== END 2021-09-13 14:42 | disposition home or self-care (01) ==
LOC: SDC 20:01 → MS3 20:01
PROVIDERS: Anesthesiology; Admitting Provider Surgery; PCP Family Medicine; Referring Provider Surgery; Visit Provider Surgery
PROC: (CPT 47610; principal; 2021-09-12 12:50)
DX: K80.10 Calculus of gallbladder with chronic cholecystitis without obstruction (principal); K21.9 Gastro-esophageal reflux disease without esophagitis; M19.90 Unspecified osteoarthritis, unspecified site; E11.9 Type 2 diabetes mellitus without complications; I10 Essential (primary) hypertension; E07.9 Disorder of thyroid, unspecified; G47.30 Sleep apnea, unspecified; Z79.84 Long term (current) use of oral hypoglycemic drugs; Z79.02 Long term (current) use of antithrombotics/antiplatelets; Z79.899 Other long term (current) drug therapy
CPT/HCPCS: 00790; 47563; 36415; 74300; 76000; 80048; 82962; 83036; 84443; 85027; 88304; 88305; 93005; 96360; 96361; 99218; 99251; J7120; A4216; G0378; G0463; J2405

== ENCOUNTER → 2022-08-02 | Outpatient (CLI) | payer MEDICARE, SELFPAY ==
[2022-08-02 10:37] LABS: Hemoglobin A1c 7.1 % (3.8-5.6)
[2022-08-02 10:46] LABS: ALB/GLOB Ratio 0.9 RATIO (0.9-2.4); AST(SGOT) 14 U/L (15-37); Alanine Aminotransfer ALT/SGPT 23 U/L (13-56); Albumin, Serum 3.3 g/dL (3.2-5.0); Alkaline Phosphatase 100 U/L (45-117); Anion Gap 10 (5-15); BUN 19 mg/dL (7-18); BUN/Creat Ratio 19.8 RATIO (10-20); Calcium,Total 8.8 mg/dL (8.5-10.1); Chloride 105 mmol/L (98-107); Cholesterol 209 mg/dL (200); Creatinine, Serum 0.96 mg/dL (0.55-1.02); EST Glomerular Filtration Rate 59 mL/min (>60); Est Glom Filt Rate - Afr Amer 71 mL/min (>60); Free T3 2.4 pg/mL (2.18-3.98); Globulin 3.6 g/dL (2.2-4.2); Glucose 144 mg/dL (74-106); High Density Lipoprotein 47 mg/dL; Potassium 4.1 mmol/L (3.5-5.1); Protein, Total 6.9 g/dL (6.4-8.2); Sodium Level 140 mmol/L (136-145); Thyroid Stim Hormone (TSH) 2.99 uIU/mL (0.358-3.74); Triglycerides 143 mg/dL; Very Low Density Lipoprotein 29 mg/dL (5-40)
[2022-08-02 11:01] LABS: Microalbumin,Random Urine < 5.0 mg/L (NO RANGE EST.)
== END | disposition home or self-care (01) ==
LOC: MTLAB 07:10
PROVIDERS: PCP Family Medicine; Referring Provider Family Medicine; Visit Provider Family Medicine
DX: E03.9 Hypothyroidism, unspecified (principal); E11.9 Type 2 diabetes mellitus without complications; E78.5 Hyperlipidemia, unspecified
CPT/HCPCS: 36415; 80053; 80061; 82043; 82570; 83036; 84439; 84443; 84481

== ENCOUNTER 2023-01-30 05:02 | Emergency (ER) | payer MEDICARE, SELFPAY ==
[2023-01-30 05:03] VITALS: BP 141/97; PULSE 65; RESP 14; TEMP 36.6; O2SAT 96; BMI 31.8
--- NOTE | 2023-01-30 05:29 | EX.ED.DYSGE1 ---
HPI History of Present Illness Chief Complaint: Lower Extremity Injury Narrative Narrative: Patient is an 82-year-old female with past medical history of hypertension hyperlipidemia and previous ischemic stroke currently on Plavix as well as history of diabetes. She states she noticed some pain in her right inguinal region on with no known trauma. She states that pain resolved but now she has had pain in the right calf. Again she states it has been no recent trauma or excessive activity. She states that the pain was so intense in the last day that she had difficulty walking and was requiring a cane which she does not normally use. She denies any recent surgery travel or history of DVT/PE. However because of the persistent pain she was brought in for evaluation [facility] Medical History (Updated 01/30/23 @ 08:[address] Flo Mccain DO) Anemia Arthritis Diabetes DVT (deep venous thrombosis) Gallstones Gastric reflux GERD (gastroesophageal reflux disease) History of stress test Hypertension Kidney stones Leg cramps Non-smoker Post-menopausal Shortness of breath on exertion Sleep apnea Stroke/cerebrovascular accident Thyroid disease Wears dentures Wears glasses Home Medications glimepiride 4 mg tablet 4 mg PO DAILY 06/09/14 [History Last Taken Unknown] levothyroxine 50 mcg tablet 75 mcg PO DAILY 06/09/14 [History Last Taken Unknown] sitagliptin phosphate 25 mg tablet (Januvia) 100 mg PO DAILY 08/18/15 [History Last Taken Unknown] amlodipine 2.5 mg tablet 2.5 mg PO DAILY #30 TABLETS 09/02/15 [Rx Last Taken Unknown] clopidogrel 75 mg tablet 75 mg PO DAILY #30 TABLETS 09/02/15 [Rx Last Taken 09/06/21] losartan 50 mg tablet 50 mg PO DAILY 08/29/21 [History Last Taken Unknown] omega-3 fatty acids 1,000 mg capsule (Fish Oil Concentrate) 1,000 mg PO BID 08/29/21 [History Last Taken Unknown] oxybutynin chloride 15 mg tablet,extended release 24 hr 15 mg PO DAILY 08/29/21 [History Last Taken Unknown] vit C 250 mg-vit E 90 mg-zinc 40 mg-copper 1 ke-qkhxhn-vqqzcb capsule (PreserVision AREDS-2) 1 tab PO BID 08/29/21 [History Last Taken Unknown] cholecalciferol (vitamin D3) 25 mcg (1,000 unit) capsule (Vitamin D3) 25 mcg PO DAILY 09/08/21 [History Last Taken Unknown] sennosides 8.6 mg-docusate sodium 50 mg tablet (Stool Softener-Stimulant Laxative) 2 tab PO PRN PRN Constipation 09/08/21 [History Last Taken Unknown] oxycodone-acetaminophen 5 mg-325 mg tablet (Percocet) 1 tab PO Q4H PRN pain 5 days #20 tabs 09/12/21 [Rx Last Taken Unknown] Allergy/AdvReac Type Severity Reaction Status Date / Time Penicillins Allergy Rash Verified 09/26/21 09:54 Omihtlq-TDR-SaS Reductase AdvReac Pain in Verified 09/26/21 09:54 Inhibitor joints [Yzqkhgo-Acr-Ojm Reductase Inhibitor] Family History Mother Diabetes Brother CAD (coronary artery disease) Surgical History History of laparoscopic cholecystectomy History of tonsillectomy Social History Smoking Status: Never smoker [facility] ED Constitutional Constitutional ED: Denies chills or fever(s) ENT ENT ED: Denies sore throat Cardiovascular Cardiovascular: Denies chest pain or palpitations Respiratory/Chest Respiratory/Chest: Denies cough or dyspnea Gastrointestinal Gastrointestinal: Denies abdominal pain, diarrhea, nausea or vomiting Genitourinary Genitourinary ED: Denies dysuria Musculoskeletal Musculoskeletal: Reports other Details: Positive right leg pain ; Denies back pain Integumentary Denies rash Neurologic Neurologic: Denies headache(s) or paresthesias Hematologic/Lymphatic Hematologic/Lymphatic: Denies easy bleeding or easy bruising EXAM Physical Exam Const Vital Signs: 01/30/23 05:03 Temperature 97.9 F Temperature Source Temporal Pulse Rate 65 Respiratory Rate 14 Blood Pressure 141/97 H Blood Pressure Mean 111 Pulse Ox 96 Oxygen Delivery Method Room Air Positive well nourished and well developed General Appearance ED: well developed Eyes PERRL and EOMs intact bilaterally Neck supple Chest Wall palpation of chest normal Resp normal respiratory effort and clear to auscultation bilaterally Cardio regular rate and regular rhythm Back/Spine Back/Spine Narrative: No bony deformity or step-off of the thoracic or lumbar spine no midline pain on palpation. No saddle anesthesia. Negative straight leg raise. No clonus. Patellar reflexes are plus 1 out of 4 bilaterally Extremity Extremity Narrative: There is mild asymmetric edema of the right lower leg compared to left. There is also point tenderness with palpation of the right posterior calf consistent with a positive Homans' sign. There is no overlying erythema or warmth or palpable cord present to suggest cellulitis abscess or superficial DVT. There is no pain with palpation over top the inguinal region or greater trochanter process to suggest bursitis or muscular strain. Neuro oriented x3 and CN's II-XII intact bilaterally Sensorium / Orientation: alert Psych mental status grossly normal Skin no rashes or lesions noted MDM MDM MDM Narrative Medical decision making narrative: Patient presented to the ER hypertensive but has a history of this and otherwise with stable vitals. She had nontraumatic pain of the right leg. On exam there is mild soft tissue swelling of the right leg compared to left and even though patient does not have recent travel surgery or history of DVT that is a possibility at this time. There is no overlying soft tissue changes to suggest infection such as cellulitis or abscess. She does not have radicular pain to suggest lumbar radiculopathy. Therefore at this time as DVT is the most likely in the differential she will need a venous duplex. However at this time of night I cannot perform one and therefore she will be given a dose of Lovenox and an outpatient order form to have the duplex done at a later time today. As the patient does not have chest pain or shortness of breath or tachypnea or tachycardia I do not feel that a D-dimer or CTA is necessary. This plan of care was discussed with the patient and family and they are agreeable to it History & Record Review Discussion w/independent historian: Patient and Significant other Discharge Plan Triage Chief Complaint: Lower Extremity Injury ED Provider: Flo Mccain Dx/Rx/DC Orders Clinical Impression: Right calf pain, Diabetes mellitus, Stroke, small vessel Instructions: Understanding Deep Vein Thrombosis Prescriptions: No Action losartan 50 mg tablet 50 mg PO DAILY oxybutynin chloride 15 mg tablet extended release 24hr 15 mg PO DAILY Label Comments: take 1 tablet by mouth once daily WITH FOOD omega-3 fatty acids [Fish Oil Concentrate] 1,000 mg capsule 1,000 mg PO BID PreserVision AREDS-2 250-90-40-1 mg capsule 1 tab PO BID levothyroxine 50 MCG tablet 75 mcg PO DAILY Label Comments: for thyroid glimepiride 4 MG tablet 4 mg PO DAILY Label Comments: controls high blood sugar Januvia 25 MG tablet 100 mg PO DAILY Label Comments: helps control high blood sugar amlodipine 2.5 MG tablet 2.5 mg PO DAILY Qty: 30 0RF Label Comments: helps to control BP clopidogrel 75 MG tablet 75 mg PO DAILY Qty: 30 0RF Label Comments: helps prevent blood clots cholecalciferol (vitamin D3) [Vitamin D3] 25 mcg (1,000 unit) Capsule 25 mcg PO DAILY sennosides-docusate sodium [Stool Softener-Stimulant Laxat] 1 TABLET tablet 2 tab PO PRN PRN (Reason: Constipation) oxycodone-acetaminophen [Percocet] 5-325 mg tablet 1 tab PO Q4H PRN (Reason: pain) 5 Days Qty: 20 0RF Other Ambulatory Orders: Venous Duplex US, Unilateral (Stat) Facility: [facility] - Location: [facility] Ordered By: Dr. Flo Mccain Primary Care Provider: Eunice Dinero Referrals: Eunice Dinero DO [Primary Care Provider] - Activity Restrictions/Additional Instructions: There is concern that your right leg/calf pain could be secondary to a blood clot/DVT. You have been protected from this with the blood thinner shot given in the ER. Please return to the hospital as directed for your outpatient venous duplex to confirm presence of blood clot. Return for repeat evaluation if you have any further concerns as well Disposition Disposition: Home, Self Care Discharge Date/Time: 01/30/23 06:11
[2023-01-30] MEDS: Enoxaparin 120 MG/0.8 ML Syringe SC (06:07)
== END 2023-01-30 06:11 | disposition home or self-care (01) ==
LOC: ED 05:31
PROVIDERS: Emergency Provider Emergency Medicine; PCP Family Medicine; Visit Provider Emergency Medicine
DX: M79.661 Pain in right lower leg (principal); E11.9 Type 2 diabetes mellitus without complications; R22.41 Localized swelling, mass and lump, right lower limb; M79.89 Other specified soft tissue disorders; I10 Essential (primary) hypertension; E78.5 Hyperlipidemia, unspecified; Z79.02 Long term (current) use of antithrombotics/antiplatelets; Z86.73 Personal history of transient ischemic attack (TIA), and cerebral infarction without residual deficits
CPT/HCPCS: 93971; 96372; 99282

== ENCOUNTER → 2023-01-30 | Outpatient (CLI) | payer MEDICARE, SELFPAY ==
--- NOTE | 2023-01-30 09:50 | VDLE_ITS ---
Reason For Study: swelling RIGHT GSV is normal. CFV is compressible, spontaneous, phasic, competent and demonstrates normal augmentation. FV is compressible, spontaneous, phasic, competent and demonstrates normal augmentation. POP V is compressible, spontaneous, phasic, competent and demonstrates normal augmentation. T/P Trunk is compressible. PTV is compressible. RT PerV is compressible. Procedure This is a venous duplex using B-mode, color flow and spectral Doppler. Exam performed in department. The exam was abbreviated due to the COVID 19 protocol. The exam was diagnostic. A preliminary report was called and/or faxed to Dr. Dinero. VL/Venous Duplex US, Unilateral Interpretation Summary Deep veins of the right lower extremity are patent and compressible segmentally . There is no evidence of right lower extremity deep vein thrombosis. Valvular competence rylan ears intact within the proximal deep venous system on the right . The right great saphenous vein a ppears patent and compressible segmentally. Ordering Physician: Flo Mccain Referring Physician: Eunice Dinero Performed By: Jordon Roque RVT
== END | disposition home or self-care (01) ==
LOC: CVS 09:49
PROVIDERS: PCP Family Medicine; Visit Provider Emergency Medicine
DX: R22.41 Localized swelling, mass and lump, right lower limb (principal); M79.89 Other specified soft tissue disorders
CPT/HCPCS: 93971

== ENCOUNTER → 2023-07-16 | Outpatient (CLI) | payer MEDICARE, SELFPAY ==
[2023-07-16 10:43] LABS: ALB/GLOB Ratio 0.9 RATIO (0.9-2.4); AST(SGOT) 12 U/L (15-37); Alanine Aminotransfer ALT/SGPT 20 U/L (13-56); Albumin, Serum 3.1 g/dL (3.2-5.0); Alkaline Phosphatase 117 U/L (45-117); Anion Gap 6 (5-15); BUN 12 mg/dL (7-18); Calcium,Total 8.5 mg/dL (8.5-10.1); Chloride 108 mmol/L (98-107); Cholesterol 194 mg/dL (200); Creatinine, Serum 0.92 mg/dL (0.55-1.02); EST Glomerular Filtration Rate 62 mL/min (>60); Est Glom Filt Rate - Afr Amer 75 mL/min (>60); Free T3 2.3 pg/mL (2.18-3.98); Globulin 3.6 g/dL (2.2-4.2); Glucose 159 mg/dL (74-106); High Density Lipoprotein 51 mg/dL; Potassium 3.8 mmol/L (3.5-5.1); Protein, Total 6.7 g/dL (6.4-8.2); Sodium Level 141 mmol/L (136-145); T4 Free Direct 1.38 ng/dL (0.76-1.46); Thyroid Stim Hormone (TSH) 2.04 uIU/mL (0.358-3.74); Triglycerides 107 mg/dL; Very Low Density Lipoprotein 21 mg/dL (5-40)
[2023-07-16 11:08] LABS: Microalbumin,Random Urine < 5.0 mg/L (NO RANGE EST.)
[2023-07-16 11:33] LABS: Hemoglobin A1c 7.3 % (3.8-5.6)
[2023-07-16 12:37] LABS: Vitamin B12 300 pg/mL (211-911)
== END | disposition home or self-care (01) ==
PROVIDERS: PCP Family Medicine; Referring Provider Family Medicine; Visit Provider Family Medicine
DX: E03.9 Hypothyroidism, unspecified (principal); E11.9 Type 2 diabetes mellitus without complications; E78.5 Hyperlipidemia, unspecified; E53.8 Deficiency of other specified B group vitamins
CPT/HCPCS: 36415; 80053; 80061; 82043; 82570; 82607; 83036; 84439; 84443; 84481

== ENCOUNTER 2023-08-13 16:26 | Emergency (ER) | payer MEDICARE, SELFPAY ==
[2023-08-13 16:29] VITALS: BP 182/75; PULSE 67; RESP 18; TEMP 35.9; O2SAT 95; BMI 31.9
--- NOTE | 2023-08-13 17:08 | US_ITS ---
INDICATION: PAIN EXAMINATION: Ultrasound US Venous Duplex LE Unilat / Limited TECHNIQUE: Trevino scale, pulse wave, and color flow Doppler imaging was performed of the lower extremity venous system. The RIGHT greater saphenous, common femoral, femoral, and popliteal veins were interrogated. COMPARISON: No pertinent previous for comparison.. FINDINGS: There is normal compression, augmentation, and signal throughout the visualized deep lower extremity veins. No mass or fluid collection. US/Venous Duplex Imag/Limited/Uni IMPRESSION: 1. No sonographic evidence of deep venous thrombosis/DVT in the RIGHT lower extremity venous system. 2. No sonographic evidence of superficial thrombophlebitis. Electronically Signed: Juan M Kelly MD at 18:07 EDT ,
--- NOTE | 2023-08-13 17:47 | EX.ED.DYSGE1 ---
HPI <ANTONIO Wick - Last Filed: 08/13/23 17:52> History of Present Illness Chief Complaint: Cellulitis Narrative Narrative: Patient is an 82-year-old female with history of diabetes hypothyroidism hyperlipidemia hypertension who presents to the emergency department for concern of cellulitis to the right foot. Patient states that over the last several weeks, she has been having intermittent swelling to her right foot. Patient has some swelling to the ankle, some discoloration to the foot and lower right extremity, she was thinking of a possible clot. Patient is in no respiratory distress, denies any chest pain or shortness of breath. COUNTS INCLUDE 234 BEDS AT THE [facility] <ANTONIO Wick - Last Filed: 08/13/23 17:52> COUNTS INCLUDE 234 BEDS AT THE [facility] Medical History (Updated 08/13/23 @ 17:51 by ANTONIO Wick) Anemia Arthritis Diabetes DVT (deep venous thrombosis) Gallstones Gastric reflux GERD (gastroesophageal reflux disease) History of stress test Hypertension Kidney stones Leg cramps Non-smoker Post-menopausal Shortness of breath on exertion Sleep apnea Stroke/cerebrovascular accident Thyroid disease Wears dentures Wears glasses Home Medications glimepiride 4 mg tablet 4 mg PO DAILY 06/09/14 [History Last Taken Unknown] levothyroxine 50 mcg tablet 75 mcg PO DAILY 06/09/14 [History Last Taken Unknown] sitagliptin phosphate 25 mg tablet (Januvia) 100 mg PO DAILY 08/18/15 [History Last Taken Unknown] amlodipine 2.5 mg tablet 2.5 mg PO DAILY #30 TABLETS 09/02/15 [Rx Last Taken Unknown] clopidogrel 75 mg tablet 75 mg PO DAILY #30 TABLETS 09/02/15 [Rx Last Taken 09/06/21] losartan 50 mg tablet 50 mg PO DAILY 08/29/21 [History Last Taken Unknown] omega-3 fatty acids 1,000 mg capsule (Fish Oil Concentrate) 1,000 mg PO BID 08/29/21 [History Last Taken Unknown] oxybutynin chloride 15 mg tablet,extended release 24 hr 15 mg PO DAILY 08/29/21 [History Last Taken Unknown] vit C 250 mg-vit E 90 mg-zinc 40 mg-copper 1 bq-npjazg-hyrozp capsule (PreserVision AREDS-2) 1 tab PO BID 08/29/21 [History Last Taken Unknown] cholecalciferol (vitamin D3) 25 mcg (1,000 unit) capsule (Vitamin D3) 25 mcg PO DAILY 09/08/21 [History Last Taken Unknown] sennosides 8.6 mg-docusate sodium 50 mg tablet (Stool Softener-Stimulant Laxative) 2 tab PO PRN PRN Constipation 09/08/21 [History Last Taken Unknown] oxycodone-acetaminophen 5 mg-325 mg tablet (Percocet) 1 tab PO Q4H PRN pain 5 days #20 tabs 09/12/21 [Rx Last Taken Unknown] sulfamethoxazole 800 mg-trimethoprim 160 mg tablet (Bactrim DS) 1 tab PO BID #14 tabs 08/13/23 [Rx Last Taken Unknown] Allergy/AdvReac Type Severity Reaction Status Date / Time Penicillins Allergy Rash Verified 08/13/23 16:29 Cggrotn-DVW-JnG Reductase AdvReac Pain in Verified 08/13/23 16:29 Inhibitor joints [Qyvxwnx-Dan-Joy Reductase Inhibitor] Family History Mother Diabetes Brother CAD (coronary artery disease) Surgical History History of laparoscopic cholecystectomy History of tonsillectomy Social History Smoking Status: Never smoker ROS <ANTONIO Wick - Last Filed: 08/13/23 17:52> [employer] Narrative Constitutional: Negative for fever, chills, weight loss, weakness Eyes: Negative for vision loss, vision change, double vision ENT: Negative for any sore throat, ear pain, congestion Cardiovascular: Negative for any chest pain, tightness, palpitations Respiratory: Negative for any cough, sputum production, hemoptysis, dyspnea, dyspnea on exertion, orthopnea Gastrointestinal: Negative for any abdominal pain, nausea, vomiting, diarrhea, constipation, blood in stool, blood in vomit : Negative for any urinary frequency, dysuria, retention, blood in urine Muscle skeletal: Negative for any muscle joint pain, stiffness, myalgias, arthralgias, neck pain, back pain. Positive for right foot pain, right foot redness Neurological: Negative for any headache, syncope, numbness or tingling, dizziness Skin: Negative for any rashes, lumps, itching, abrasions, lacerations Psychiatric: Negative for any depression, anxiety, stress, suicidal ideation, homicidal ideation Hematologic: Negative for any easy bruising, excessive bruising, easy bleeding Allergies: Negative for any eczema, hives, rash <Dr. Ho Driscoll DO - Last Filed: 08/13/23 20:21> ROS ED ROS Narrative Constitutional: Negative for fever, chills, weight loss, weakness Eyes: Negative for vision loss, vision change, double vision ENT: Negative for any sore throat, ear pain, congestion Cardiovascular: Negative for any chest pain, tightness, palpitations Respiratory: Negative for any cough, sputum production, hemoptysis, dyspnea, dyspnea on exertion, orthopnea Gastrointestinal: Negative for any abdominal pain, nausea, vomiting, diarrhea, constipation, blood in stool, blood in vomit : Negative for any urinary frequency, dysuria, retention, blood in urine Muscle skeletal: Negative for any muscle joint pain, stiffness, myalgias, arthralgias, neck pain, back pain. Positive for right foot pain, right foot redness Neurological: Negative for any headache, syncope, numbness or tingling, dizziness Skin: +redness Psychiatric: Negative for any depression, anxiety, stress, suicidal ideation, homicidal ideation Hematologic: Negative for any easy bruising, excessive bruising, easy bleeding Allergies: Negative for any eczema, hives, rash EXAM <ANTONIO Wick - Last Filed: 08/13/23 17:52> Physical Exam Narrative Exam Narrative: Vital signs reviewed. HEET: Head normocephalic atraumatic, TMs clear bilaterally. Posterior pharynx is clear, moist mucous membranes. Nares clear bilaterally. Neck: Supple with no lymphadenopathy or tenderness. No signs of meningismus, negative jolt sign. Cardiac: Regular rate and rhythm no murmurs gallops or rubs, equal peripheral pulses bilaterally. Respiratory: Lungs clear to auscultation bilaterally. No chest tenderness. Abdomen: Soft, nontender, nondistended. No abdominal bruit or pulsatile masses. No hepatosplenomegaly Extremities: Patient has slight redness to the dorsal aspect of the right foot, slight redness to the ankle with minimal swelling. There is some irregularity between the right and left leg and foot. +2 pedal pulse. No evidence of a neurological focal deficit. No obvious gross infection, no deep tissue infection. Neuro: Cranial nerves II through XII intact, no focal neurological deficits. Skin: Clean dry and intact with no rash, purpura, petechiae, vesicles or pustules. Backs/flank: No CVA tenderness, no midline spinal tenderness, no deformity. Psych: Normal mood and affect. No SI, HI or acute psychosis. Const Vital Signs: 08/13/23 16:29 08/13/23 16:39 Temperature 96.6 F L Temperature Source Temporal Pulse Rate 67 Respiratory Rate 18 Respiratory Pattern Normal Blood Pressure 182/75 H Blood Pressure Mean 110 Pulse Ox 95 Oxygen Delivery Method Room Air <Dr. Ho Driscoll DO - Last Filed: 08/13/23 20:21> Physical Exam Const Vital Signs: 08/13/23 16:29 08/13/23 16:39 Temperature 96.6 F L Temperature Source Temporal Pulse Rate 67 Respiratory Rate 18 Respiratory Pattern Normal Blood Pressure 182/75 H Blood Pressure Mean 110 Pulse Ox 95 Oxygen Delivery Method Room Air MDM <ANTONIO Wick - Last Filed: 08/13/23 17:52> MDM Radiography Diagnostic Testing: Clinical Impression(s) from Imaging Studies Venous Duplex 08/13/23 17:08 IMPRESSION: 1. No sonographic evidence of deep venous thrombosis/DVT in the RIGHT lower extremity venous system. 2. No sonographic evidence of superficial thrombophlebitis. Electronically Signed: Juan M Kelly MD at 18:07 EDT , Treatment and Re-Evaluation :: Patient appears generally well, patient appears nontoxic, vital signs are stable patient presents to the emergency department for right foot redness, swelling. Patient did receive a venous duplex this is concerning for any DVT she does have a history several years ago. DVT was negative. At this time, patient will be treated for cellulitis of the right foot. Patient be started on Bactrim secondary to her penicillin allergy. She is instructed to take this twice a day for 7 days. Patient has no signs or symptoms of any septicemia, no deep tissue infection, there is nothing to drain. Patient is agreeable with the plan, she will return for any worsening symptoms <Dr. Ho Driscoll DO - Last Filed: 08/13/23 20:21> [facility] Radiography Diagnostic Testing: Clinical Impression(s) from Imaging Studies Venous Duplex 08/13/23 17:08 IMPRESSION: 1. No sonographic evidence of deep venous thrombosis/DVT in the RIGHT lower extremity venous system. 2. No sonographic evidence of superficial thrombophlebitis. Electronically Signed: Juan M Kelly MD at 18:07 EDT , Treatment and Re-Evaluation :: Patient appears generally well, patient appears nontoxic, vital signs are stable patient presents to the emergency department for right foot redness, swelling. Patient did receive a venous duplex this is concerning for any DVT she does have a history several years ago. DVT was negative. At this time, patient will be treated for cellulitis of the right foot. Patient be started on Bactrim secondary to her penicillin allergy. She is instructed to take this twice a day for 7 days. Patient has no signs or symptoms of any septicemia, no deep tissue infection, there is nothing to drain. Patient is agreeable with the plan, she will return for any worsening symptoms. ED attending note: I evaluated the patient in conjunction with the MICKEY. I agree with his/her statements and above findings. I have personally performed a face to face assessment of the patient and have reviewed the MICKEY Note. I performed a substantive portion of the visit including all aspects of the following. I personally saw the patient performed chart review, physical exam, reviewed labs, imaging (if obtained), and formulated a treatment and management plan. Brief history: 82-year-old female here with right leg swelling and redness. History of DVT. She denies chest pain or shortness of breath at this time Exam: Nursing triage notes reviewed, Vital signs reviewed Constitutional: [facility] see [facility] HENT: MMM E : No CVAT Extremities: Compartments are soft Neuro: Intact sensation L1-S1 dermatomal distributions. Intact 5/5 strength in hip flexion (T12-L3). Knee extension (L2-L4). Ankle dorsiflexion (L4-L5). Ankle plantar flexion (S1). Great toe extension (L5). 2+ patellar and Achilles DTRs. Skin: N no crepitus or bullae noted, slight erythema noted to the dorsum of the foot, MDM/plan: Chief Complaint: Right leg swelling, redness External records reviewed: Venous Doppler study from 2022 shows no evidence of DVT Factors affecting care: DVT Social determinants of health: Elderly History obtained from others: The patient's daughter Consults: None MDM narrative: The patient was hemodynamically stable, afebrile, nontoxic-appearing. Right lower extremity was slightly edematous, there is no calf tenderness but there is redness and pain over the dorsum of the foot into the lower ankle. I considered the following differential diagnosis: Cellulitis, DVT, arterial occlusion, necrotizing fasciitis, septic arthritis There is no clinical evidence to suggest septic arthritis, there is no crepitus bullae or pain or proportion exam to suggest necrotizing fasciitis. There is no obvious palpable abscess. Given the patient history of DVT we will obtain a duplex ultrasound. We will treat empirically for cellulitis as well. Shared decision making: I will have a discussion with the patient and or visitors regarding risk/benefits of further testing or admission. They will be made aware of of the risk/benefits inherent in this decision they will be given the opportunity to voice understanding. Discharge Plan Triage Chief Complaint: Cellulitis ED Midlevel Provider: Chance Duong ED Provider: Ho Driscoll Dx/Rx/DC Orders Clinical Impression: Cellulitis Instructions: Cellulitis Dc Prescriptions: New sulfamethoxazole-trimethoprim [Bactrim DS] 800-160 mg tablet 1 tab PO BID Qty: 14 0RF No Action losartan 50 mg tablet 50 mg PO DAILY oxybutynin chloride 15 mg tablet extended release 24hr 15 mg PO DAILY Patient Comments: take 1 tablet by mouth once daily WITH FOOD omega-3 fatty acids [Fish Oil Concentrate] 1,000 mg capsule 1,000 mg PO BID PreserVision AREDS-2 250-90-40-1 mg capsule 1 tab PO BID levothyroxine 50 MCG tablet 75 mcg PO DAILY Patient Comments: for thyroid glimepiride 4 MG tablet 4 mg PO DAILY Patient Comments: controls high blood sugar Januvia 25 MG tablet 100 mg PO DAILY Patient Comments: helps control high blood sugar amlodipine 2.5 MG tablet 2.5 mg PO DAILY Qty: 30 0RF Patient Comments: helps to control BP clopidogrel 75 MG tablet 75 mg PO DAILY Qty: 30 0RF Patient Comments: helps prevent blood clots cholecalciferol (vitamin D3) [Vitamin D3] 25 mcg (1,000 unit) Capsule 25 mcg PO DAILY sennosides-docusate sodium [Stool Softener-Stimulant Laxat] 1 TABLET tablet 2 tab PO PRN PRN (Reason: Constipation) oxycodone-acetaminophen [Percocet] 5-325 mg tablet 1 tab PO Q4H PRN (Reason: pain) 5 Days Qty: 20 0RF Primary Care Provider: Eunice Dinero Referrals: Eunice Dinero DO [Primary Care Provider] - Activity Restrictions/Additional Instructions: Please return if getting worse Disposition Disposition: Home, Self Care Discharge Date/Time: 08/13/23 18:07
[2023-08-13] MEDS: Smz/Tmp Ds Tablet 1 TABLET PO (17:50)
== END 2023-08-13 18:07 | disposition home or self-care (01) ==
LOC: ED 18:02
PROVIDERS: Emergency Provider Emergency Medicine; PCP Family Medicine; Visit Provider Emergency Medicine
DX: L03.115 Cellulitis of right lower limb (principal); E11.9 Type 2 diabetes mellitus without complications; R60.0 Localized edema; I10 Essential (primary) hypertension; E03.9 Hypothyroidism, unspecified; E78.5 Hyperlipidemia, unspecified; Z86.718 Personal history of other venous thrombosis and embolism
CPT/HCPCS: 93971; 99283

== ENCOUNTER → 2024-03-04 | Outpatient (CLI) | payer MEDICARE, SELFPAY ==
--- NOTE | 2024-03-04 15:17 | BI_ITS ---
MAMMOGRAPHY - BILATERAL SCREENING REASON FOR EXAM: Female, 83 years old. Routine annual screening examination. PERTINENT HISTORY: Non-contributory. TECHNIQUE: Digital bilateral breast amrit (3D mammographic acquisition) in the CC and MLO projections. 2-D mediolateral oblique (MLO) and craniocaudad (CC) views of both breasts were obtained. CAD: Full Field Digital Mammography with Computer Added Detection was performed. COMPARISON: Comparison is made with prior study dated January 27, 2021 and August 21, 2017. FINDINGS: Breast Composition: The breasts are almost entirely fatty. There are no dominant masses or suspicious calcifications. No other significant abnormalities are identified. There has been no significant change since the prior study. BI/SCRN MAMM (CAD)W/AMRIT BILAT IMPRESSION: Stable bilateral screening mammogram. Yearly follow-up mammogram recommended. (A) ASSESSMENT CATEGORY: BIRADS Category 1: Negative. A letter regarding these results will be sent to the patient by the facility within 30 days. Approximately 10% of breast cancers are not detected by mammography. A normal mammogram should not delay biopsy of a clinically suspicious abnormality. [id number] Electronically Signed: Tim Rodriguez MD at 8:12 EDT ,
--- NOTE | 2024-03-04 15:17 | BD_ITS ---
STUDY: DUAL ENERGY X-RAY ABSORPTIOMETRY / DXA REASON FOR EXAM: Female, 83 years old. M810 TECHNIQUE: Bone Mineral Density (BMD) measurements of lumbar spine and bilateral hips were obtained. COMPARISON: Comparison is made with prior study dated January 27, 2021. FINDINGS: Lumbar Spine (L1-L4): g/cm2 (0.927) / T-score (-1.1) / Z-score (1.8) Findings are suggestive of normal bone density with a low fracture risk. Left Femur Total: g/cm2 (0.852) / T-score (-0.7) / Z-score (1.6) Left Femoral Neck: g/cm2 (0.619) / T-score (-2.1) / Z-score (0.5) Right Femur Total: g/cm2 (0.785) / T-score (-1.3) / Z-score (1.0) Right Femoral Neck: g/cm2 (0.552) / T-score (-2.7) / Z-score (-0.1) The T-Scores on the most recent prior examination were: Lumbar Spine (L1-L4): There has been worsening of bone density since the previous examination. Left Femur Total: which represents a worsening of 1.6%. Right Femur Total: which represents a worsening of 1%. BD/Dexa Bone Density Study IMPRESSION: The patient is considered osteoporotic as outlined below according to World [place] [employer] Organization (WHO) criteria with a high fracture risk. There has been worsening of bone density since the previous examination. Reference Information: The T-score is the number of standard deviations above or below the standard which is normal for young adults at their peak bone mineral density. The World Health Organization (WHO) interprets the T-scores as follows: Above -1 Normal bone density Between -1 and -2.5 Osteopenia Equal to / or below -2.5 Osteoporosis As a practical clinical guideline, osteopenia may be graded as follows: Mild -1 through -1.5 Moderate -1.6 through -2.0 Severe -2.1 through -2.4 The Z-score is the number of standard deviations above or below age-matched controls. A Z-score of less than -1.5 would be considered abnormal. References: 1. NIH Osteoporosis and Related Bone Diseases www osteo.org 2. International Society for Clinical Densitometry www iscd.org 3. National Osteoporosis Foundation www nof.org Electronically Signed: Tim Rodriguez MD at 14:31 EDT ,
== END | disposition home or self-care (01) ==
LOC: OPBD 15:16
PROVIDERS: PCP Family Medicine; Referring Provider Family Medicine; Visit Provider Family Medicine
DX: Z12.31 Encounter for screening mammogram for malignant neoplasm of breast (principal); M81.0 Age-related osteoporosis without current pathological fracture
CPT/HCPCS: 77063; 77067; 77080

== ENCOUNTER → 2024-06-16 | Outpatient (CLI) | payer MEDICARE, SELFPAY ==
--- NOTE | 2024-06-16 | TISS_PTH ---
PATIENT: PEDRITO MELCHOR LOC: [facility]#:[id number] AGE/SX: 83/F ROOM: RE06/16/[address]: Dr. Eunice Dinero, : 1940 BED: DIS: 06/16/2024 SPEC #: [id number] RECD: 06/16/24 15:03 STATUS: ELLIS BERNADETTE #: [id number] TANA: 06/16/24 00:[address]: Eunice Dinero DEPT: SURGICAL PATHOLOGY RECD BY: Neno Mendez Tissues: Skin of head, NOS Procedures: Surgery Specimen Level IV HEADER OPERATION: 3mm punch biopsy right frontal scalp PRE-OP DIAGNOSIS: Seborrheic keratosis vs basal cell TISSUE SUBMITTED: Right frontal scalp MICROSCOPIC DIAGNOSIS Right frontal scalp lesion, punch biopsy: Seborrheic keratosis. Negative for malignancy. See comment. ANTOINETTE/ 06/18/2024 COMMENT Clinical correlation and appropriate follow up are necessary. MICROSCOPIC DESCRIPTION Slides are reviewed. GROSS DESCRIPTION Received is one container labeled with the patient's name and not further designated. The specimen consists of a piece of -brown skin measuring 0.2 x 0.2 x 0.1cm. The entire specimen is submitted in one cassette. 06/17/2024 TC:1 CPT:25173
== END | disposition home or self-care (01) ==
LOC: LABSPEC 15:25
PROVIDERS: PCP Family Medicine; Referring Provider Family Medicine; Visit Provider Family Medicine
DX: L82.1 Other seborrheic keratosis (principal)
CPT/HCPCS: 88305

== ENCOUNTER → 2024-07-09 | Outpatient (CLI) | payer MEDICARE, SELFPAY ==
--- NOTE | 2024-07-09 15:48 | RAD_ITS ---
INDICATION: BACK PAIN/ FALL EXAMINATION/TECHNIQUE: X-RAY - XR Spine Lumbar Min 4 Views COMPARISON: No relevant prior comparison study available FINDINGS: VERTEBRAE: Preserved vertebral body height. No fracture. L5 pars defects are suspected. Grade 1 anterolisthesis of L4 on L5 and L5 on S1. Preservation of the normal lumbar lordosis. Mild dextroscoliosis centered at L4. DISCS: Disc space narrowing at the lower lumbar spine. Facet arthropathy at L4-L5 and L5-S1. INCLUDED ABDOMEN: Included bowel gas pattern is non-obstructive. RAD/L/S Spine Min 4 Views IMPRESSION: No evidence of lumbar spinal fracture or spondylolisthesis. Mild degenerative change at the lower lumbar spine. Electronically Signed: Clifford Carlton MD at 7:03 EDT ,
== END | disposition home or self-care (01) ==
LOC: MTRAD 15:46
PROVIDERS: PCP Family Medicine; Referring Provider Family Medicine; Visit Provider Family Medicine
DX: M54.50 Low back pain, unspecified (principal)
CPT/HCPCS: 72110

== ENCOUNTER → 2024-10-21 | Outpatient (CLI) | payer MEDICARE, SELFPAY ==
[2024-10-21 09:47] LABS: Absolute Lymphocyte Count 2.29 X10^3/uL (0.83-4.51); Absolute Neutrophil Count 3.8 X10^3/uL (2.0-7.7); Basophil# 0.08 X10^3/uL; Basophil% 1.1 % (0-1); Eosinophil# 0.17 X10^3/uL; Eosinophils% 2.4 % (0-5); Hematocrit 38.5 % (37-47); Hemoglobin 12.1 g/dL (12.0-15.0); Lymphocyte # 2.29 X10^3/ul (0.83-4.51); Mean Corp Hgb Conc 31.4 g/dL (32-36); Mean Corpuscular Hgb 28.3 pg (27.0-32.0); Mean Platelet Vol. 10.2 fl (6.2-12.0); Monocyte# 0.79 X10^3/uL; NRBC Flagged by Analyzer 0 % (0-5); Neutrophil # 3.82 X10^3/uL (2.7-7.7); Neutrophil % 53.4 % (47-70); Platelet Count 234 K/mm3 (150-450); RBC Distribution Width CV 13.5 % (11.6-14.6); RBC Distribution Width SD 44.4 fl (35.1-43.9); Red Blood Count 4.28 M/mm3 (4.2-5.4); White Blood Count 7.2 K/mm3 (4.4-11.0)
[2024-10-21 13:49] LABS: ALB/GLOB Ratio 0.8 RATIO (0.9-2.4); AST(SGOT) 17 U/L (15-37); Alanine Aminotransfer ALT/SGPT 25 U/L (13-56); Albumin, Serum 3.2 g/dL (3.2-5.0); Alkaline Phosphatase 117 U/L (45-117); Anion Gap 8 (5-15); BUN 19 mg/dL (7-18); BUN/Creat Ratio 17.8 RATIO (10-20); Chloride 106 mmol/L (98-107); Cholesterol 208 mg/dL (200); Creatinine, Serum 1.07 mg/dL (0.55-1.02); EST Glomerular Filtration Rate 52 mL/min (>60); Est Glom Filt Rate - Afr Amer 63 mL/min (>60); Globulin 3.8 g/dL (2.2-4.2); Glucose 197 mg/dL (74-106); High Density Lipoprotein 51 mg/dL; Potassium 4.5 mmol/L (3.5-5.1); Sodium Level 135 mmol/L (136-145); Triglycerides 164 mg/dL; Very Low Density Lipoprotein 33 mg/dL (5-40)
[2024-10-22 04:07] LABS: C-Peptide 3.3 ng/mL (1.1-4.4); Insulin Level 14.4 uIU/mL (2.6-24.9)
== END | disposition home or self-care (01) ==
LOC: MTLAB 09:06
PROVIDERS: PCP Family Medicine; Referring Provider Family Medicine; Visit Provider Family Medicine
DX: E11.65 Type 2 diabetes mellitus with hyperglycemia (principal); E03.9 Hypothyroidism, unspecified; E78.5 Hyperlipidemia, unspecified; Z51.81 Encounter for therapeutic drug level monitoring
CPT/HCPCS: 36415; 80053; 80061; 83525; 84443; 84681; 85025